=== PATIENT | female | born 1945 | race Caucasian/White ===

== ENCOUNTER → 2018-11-06 | Outpatient (REF) | payer MEDICARE | END | disposition home or self-care (01) | LOC: MRI 09:19 | PROVIDERS: ATTEND Internal Medicine | DX: R42 Dizziness and giddiness (principal) | CPT/HCPCS: A9579 ==

== ENCOUNTER 2022-01-02 16:53 | Observation (INO) | payer MEDICARE ==
[~2022-01-02] VITALS: Ht 170.2 cm; Wt 94.0 kg
[2022-01-02 17:24] VITALS: BP 190/84
[2022-01-02 17:40] LABS: HEMATOCRIT 44.5 % (37.0-47.0); HEMOGLOBIN 14.9 g/dl (12.0-16.0); IMMATURE GRANULOCYTES 0.1 % (0.0-5.0); MEAN CELL VOLUME 95.9 fL CALC (80.0-100.0); MEAN CORPUSCULAR HGB 32.1 pG CALC (26.0-32.0); MEAN CORPUSCULAR HGB CONC 33.5 g/dL CAL (32.0-36.0); NEUT# 4.12 thou/uL (2.00-7.15); RED BLOOD COUNT 4.64 mill/uL (4.20-5.60); RED CELL DISTRI WIDTH 13.5 % (11.5-15.5)
[2022-01-02 17:52] LABS: ALBUMIN 4.6 g/dL (3.2-5.0); ALKALINE PHOSPHATASE 70 u/l (38-126); ANION GAP 14 (6-22 (CALC)); BUN 18 mg/dL (8-23); BUN/CREATININE RATIO 19 (12-20 (CALC)); CARBON DIOXIDE 28 mmol/l (22-30); CHLORIDE 103 mmol/l (95-108); CREATININE 0.9 mg/dL (0.5-1.0); GFR > 60 ML/MIN (>=60 (CALC)); GFR FOR AFR.AMER. > 60 ML/MIN (>=60 (CALC)); MAGNESIUM 1.9 mg/dL (1.6-2.3); POTASSIUM 4.1 mmol/l (3.5-5.1); SGOT/AST 26 u/l (9-36); SODIUM 141 mmol/l (137-146)
[2022-01-02 19:04] VITALS: BP 140/57
--- NOTE | 2022-01-02 20:00 | NUR ---
PATIENT SITTING IN BED AT THIS TIME-AWAKE ALERT AND ORIENTEDX3. IVF NS HUNG AND INFUSING VIA LAC SITE AT 100CC/HR. SITE IS HEALTHY WITH GOOD BLOOD RETURN. MEDICATED FOR NAUSEA WITH ZOFRAN 4MG IVP AND WITH PROTONIX ORDERED. PATIENT IS NOW STARTING GASTROGRAFIN PREP ORDERED FOR CT OF ABD. PATIENT INSTRUCTED THAT WE DO NEED URINE SPEC WHEN SHE IS ABLE TO PROVIDE URINE SPEC. ORIENTED TO ROOM AND SURROUNDINGS. NPO EXCEPT FOR MEDICATIONS AT THIS TIME. SAFETY PRECAUTIONS REINFORCED. CALL LIGHT IN REACH. WILL CONT TO MONITOR.
--- NOTE | 2022-01-02 22:00 | NUR ---
PATIENT RESTING IN BED-COMPLETED THE CT ORAL CONTRAST AND RADIOLOGY WAS NOTIFIED. PATIENT WAS TAKEN TO RADIOLOGY AND THEN RETURNED TO THE ROOM BY [facility] STAFF. ASSISTED TO BR AND URINE SPEC WAS OBTAINED AND SENT TO LAB. BACK IN BED WITH IVF PATENT AND INFUSING VIA LAC SITE AT 100CC/HR. SITE REMAINS HEALTHY. PATIENT MEDICATED ORDERED WITH SIP OF H20. MEDICATED FOR PAIN WITH MORPHINE 2MG IVP ORDERED. SAFETY PRECAUTIONS REINFORCED. CALL LIGHT IN REACH. WILL CONT TO MONITOR.
[2022-01-02 23:09] LABS: URINE BILIRUBIN - DIPSTICK NEGATIVE (NEGATIVE); URINE BLOOD DIPSTICK NEGATIVE (NEGATIVE); URINE COLOR YELLOW; URINE GLUCOSE - DIPSTICK NEGATIVE (NEGATIVE); URINE KETONE TRACE mg/dL (NEGATIVE); URINE LEUK ESTERASE NEGATIVE (NEGATIVE); URINE PH 5.5 (4.5-8.0); URINE PROTEIN - DIPSTICK NEGATIVE (NEG-TRACE); URINE SPECIFIC GRAVITY >=1.030; URINE UROBILINOGEN - DIPSTICK 0.2 E.U./dL (0.2)
[2022-01-02 23:10] LABS: URINE NITRITE - DIPSTICK POSITIVE (Negative)
[2022-01-02 23:14] LABS: URINE BACTERIA MANY hpf; URINE SQUAMOUS EPITHELIAL CELL FEW EPI/hpf (0-FEW)
--- NOTE | 2022-01-03 00:30 | NUR ---
PATIENT RESTING IN BED-ROCEPHIN HUNG ORDERED VIA LAC SITE. REMAINS NPO AT THIS TIME. CALL LIGHT IN REACH. WILL CONT TO MONITOR.
[2022-01-03 04:15] VITALS: BP 109/54
--- NOTE | 2022-01-03 04:30 | NUR ---
PATIENT RESTING IN BED WITH EYES CLOSED. RESPS ARE EVEN AND UNLABORED. IVF NS PATENT AND INFUSING VIA LEFT ACSITE AT 100CC/HR. REMAINS NPO EXCEPT FOR MEDS. CALL LIGHT IN REACH. WILL CONT TO MONITOR.
[2022-01-03 06:15] LABS: ALKALINE PHOSPHATASE 53 u/l (38-126); ANION GAP 10 (6-22 (CALC)); BILIRUBIN, TOTAL 0.6 mg/dL (0.0-1.4); BUN 15 mg/dL (8-23); BUN/CREATININE RATIO 18 (12-20 (CALC)); CARBON DIOXIDE 25 mmol/l (22-30); CHLORIDE 108 mmol/l (95-108); CREATININE 0.8 mg/dL (0.5-1.0); GFR > 60 ML/MIN (>=60 (CALC)); GFR FOR AFR.AMER. > 60 ML/MIN (>=60 (CALC)); POTASSIUM 4.2 mmol/l (3.5-5.1); SGOT/AST 20 u/l (9-36); SODIUM 139 mmol/l (137-146)
[2022-01-03 06:31] LABS: ALBUMIN 3.3 g/dL (3.2-5.0); TOTAL PROTEIN 5.9 g/dL (6.3-8.2)
[2022-01-03 06:46] VITALS: BP 116/54
--- NOTE | 2022-01-03 08:00 | NUR ---
GOT REPORT FROM PADDING [facility]UER NURSE. PATIENT SLEEPING WHEN WALKING INTO ROOM. PATIENT AWOKE WITH CATALINAALY CALLING HER NAME. PATIENT ASSESSED, AOX3, DENIES ANY NAUSEA AND VOMITING ALL NIGHT. PATIENT IS NPO FOR A PROCEDURE TODAY. ALTHOUGH PATIENT ADMITTED OF SIPPING WATER EARLIER THIS MORNING AND DOES NOT KNOW THE TIME. PER [employer] RELATIONS ASSOCIATE PATIENT IS TO HOLD OFF OF MORNING MEDICATIONS UNTIL AFTER PROCEDURE. PATIENT MADE AWARE AND VERBALIZED UNDERSTANDING. CALL LIGHT AND BEDSIDE TABLE IS WITHIN REACH OF PATIENT. NO QUESTIONS OR CONCERNS AT THIS TIME FROM PATIENT. ADVISED PATIENT TO CALL IF SHE NEEDS ANYTHING.
[2022-01-03] MEDS ORDERED: FLEXERIL5 M1 PO (10:27)
[2022-01-03] MEDS ORDERED: GABAPENTIN100 MG PO (10:28)
[2022-01-03] MEDS ORDERED: ESCITALOPRAM OX20 MG PO (10:28)
[2022-01-03] MEDS ORDERED: TRAMADOL HCL50 MG PO (10:29)
[2022-01-03] MEDS ORDERED: BUSPIRONE5 MG PO (10:29)
[2022-01-03] MEDS ORDERED: DITROPAN XL5 MG PO (10:30)
[2022-01-03] MEDS ORDERED: XANAX0.25 MG PO (10:30)
[2022-01-03] MEDS ORDERED: METFORMIN500 M2 PO (10:30)
[2022-01-03] MEDS ORDERED: LEVOTHYROXIN75 MCG PO (10:31)
[2022-01-03] MEDS ORDERED: ROPINIROLE2 MG PO (10:31)
[2022-01-03] MEDS ORDERED: ZOCOR20 M1 PO (10:32)
--- NOTE | 2022-01-03 12:00 | NUR ---
PATIENT IS SLEEPING IN BED. PATIENT BREATHING EVEN. NO SXS OF DISTRESS.CALL LIGHT AND BEDSIDE TABLE WITHIN REACH OF PATIENT.
[2022-01-03 14:14] VITALS: BP 110/49
--- NOTE | 2022-01-03 16:00 | NUR ---
PATIENT IN RECLINER NAPPING. PATIENT HAS NO SXS OF DISTRESS. BREATHING IS EVEN. CALL LIGHT AND BEDSIDE TABLE ARE WITH IN REACH OF PATIENT.
[2022-01-03 18:50] VITALS: BP 140/63
--- NOTE | 2022-01-03 20:00 | NUR ---
PATIENT RESTING IN BED AT THIS TIME-AWAKE ALERT AND ORIENTEDEX3 WITH NO COMPLAINTS AT THIS TIME EXCEPT THAT SHE HAD SOME LOOSE STOOLS THIS AFTERNOON. NO NAUSEA OR ABD PAIN AT THIS TIME. IVF NS PATENT AND INFUSING VIA LAC SITE AT 100CC/HR. SITE REMAINS HEALTHY AT THIS TIME. PATIENT FOR EGD TOMORROW WITH DR. FORRESTER. NPO AFTER MN TONIGHT-PATIENT IS AWARE. ABD IS SOFT WITH ACTIVE BS. SAFETY PRECAUTIONS REINFORCED. CALL LIGHT IN REACH. WILL CONT TO MONITOR.
--- NOTE | 2022-01-03 23:44 | NUR ---
PATIENT RESTING IN BED POSITIONED ON LEFT SIDE WITH EYES CLOSED. RESPS ARE EVEN AND UNLABORED. IVF PATENT AND INFUSING VIA LEFT AC SITE. ROCEPHIN HUNG ORDERED. NPO FOR EGD IN AM. CALL LIGHT IN REACH. WILL CONT TO MONITOR.
[2022-01-04] VITALS (10 sets, daily range): BP systolic 109–125; BP diastolic 56–65
--- NOTE | 2022-01-04 04:25 | NUR ---
PATIENT RESTING ON LEFT SIDE WITH EYES CLOSED. RESP ARE EVEN AND UNLABORED. IVF PATENT AND INFUSING VIA LAC SITE AT 100CC/HR. CALL LIGHT IN REACH. WILL CONT TO MONITOR.
[2022-01-04 05:51] LABS: HEMATOCRIT 40.3 % (37.0-47.0); HEMOGLOBIN 13.1 g/dl (12.0-16.0); IMMATURE GRANULOCYTES 0.4 % (0.0-5.0); MEAN CELL VOLUME 97.8 fL CALC (80.0-100.0); MEAN CORPUSCULAR HGB 31.8 pG CALC (26.0-32.0); MEAN CORPUSCULAR HGB CONC 32.5 g/dL CAL (32.0-36.0); NEUT# 3.38 thou/uL (2.00-7.15); RED BLOOD COUNT 4.12 mill/uL (4.20-5.60); RED CELL DISTRI WIDTH 13.3 % (11.5-15.5)
[2022-01-04 06:19] LABS: ALBUMIN 3.3 g/dL (3.2-5.0); ALKALINE PHOSPHATASE 48 u/l (38-126); ANION GAP 11 (6-22 (CALC)); BILIRUBIN, TOTAL 0.4 mg/dL (0.0-1.4); BUN 14 mg/dL (8-23); BUN/CREATININE RATIO 18 (12-20 (CALC)); CARBON DIOXIDE 22 mmol/l (22-30); CHLORIDE 109 mmol/l (95-108); CREATININE 0.8 mg/dL (0.5-1.0); GFR > 60 ML/MIN (>=60 (CALC)); GFR FOR AFR.AMER. > 60 ML/MIN (>=60 (CALC)); MAGNESIUM 1.8 mg/dL (1.6-2.3); POTASSIUM 4.3 mmol/l (3.5-5.1); SGOT/AST 22 u/l (9-36); SODIUM 138 mmol/l (137-146); TOTAL PROTEIN 5.7 g/dL (6.3-8.2)
--- NOTE | 2022-01-04 07:47 | NUR ---
PT IN OR FOR PROCEDURE
--- NOTE | 2022-01-04 09:07 | NUR ---
PT ARRIVED FROM OR VIA STRATCHER WITH ASSISTANT GOLF COACH.
[2022-01-04] MEDS ORDERED: BACTRIM DS1 TAB PO (11:25)
--- NOTE | 2022-01-04 14:54 | NUR ---
Discharge instructions given. Patient verbalizes understanding of same. Discharged in stable condition via Wheelchair to Home with staff. All belongings sent with pt.
== END 2022-01-04 14:54 | disposition home or self-care (01) ==
LOC: MS2 16:53
PROVIDERS: Nurse Practitioner; ADMIT Internal Medicine; ATTEND Internal Medicine
PROC: 0DJ08ZZ Inspection of Upper Intestinal Tract, Via Natural or Artificial Opening Endoscopic (ICD-10-PCS; principal; 2022-01-04)
DX: R13.10 Dysphagia, unspecified (principal); R11.2 Nausea with vomiting, unspecified; N39.0 Urinary tract infection, site not specified; I10 Essential (primary) hypertension; E11.9 Type 2 diabetes mellitus without complications; E03.9 Hypothyroidism, unspecified; F32.A Depression, unspecified; F41.9 Anxiety disorder, unspecified; G25.81 Restless legs syndrome; Z98.84 Bariatric surgery status; Z87.891 Personal history of nicotine dependence; Z20.822 Contact with and (suspected) exposure to COVID-19
CPT/HCPCS: J1650; S0164

== ENCOUNTER 2024-05-24 13:31 | Observation (INO) | payer MEDICARE ==
[~2024-05-24] VITALS: Ht 170.2 cm; Wt 91.2 kg
[2024-05-24] VITALS (15 sets, daily range): BP systolic 98–150; BP diastolic 64–85
[~2024-05-24 13:31] MED LIST: BACTRIM DS1 TAB PO; BUSPIRONE5 MG PO; DITROPAN XL5 MG PO; ESCITALOPRAM OX20 MG PO; FLEXERIL5 M1 PO; GABAPENTIN100 MG PO; LEVOTHYROXIN75 MCG PO; METFORMIN500 M2 PO; ROPINIROLE2 MG PO; TRAMADOL HCL50 MG PO; XANAX0.25 MG PO; ZOCOR20 M1 PO
[2024-05-24 14:18] LABS: BASO% 0.7 % (0-3); HEMATOCRIT 41.9 % (37.0-47.0); HEMOGLOBIN 13.7 g/dl (12.0-16.0); IMMATURE GRANULOCYTES 0.2 % (0.0-5.0); MEAN CELL VOLUME 102.7 fL CALC (80.0-100.0); MEAN CORPUSCULAR HGB 33.6 pG CALC (26.0-32.0); MEAN CORPUSCULAR HGB CONC 32.7 g/dL CAL (32.0-36.0); MONO% 4.5 % (2-13); NEUT# 2.97 thou/uL (2.00-7.15); NEUT% 55.6 % (42-76); RED BLOOD COUNT 4.08 mill/uL (4.20-5.60); RED CELL DISTRI WIDTH 14.3 % (11.5-15.5)
[2024-05-24 14:34] LABS: ALBUMIN 4.7 g/dL (3.2-5.0); BILIRUBIN, TOTAL 0.8 mg/dL (0.02-1.3); CREATININE 0.9 mg/dL (0.5-1.0); TOTAL PROTEIN 7.4 g/dL (6.3-8.2)
[2024-05-24] MEDS ORDERED: MAGNESIUM HYDROXIDE 30 ML UDC PO PRN (15:35)
[2024-05-24] MEDS ORDERED: SODIUM CHLORIDE 0.9% 1,000 ML IV PRN (15:35)
[2024-05-24] MEDS ORDERED: hydrALAZINE HCL 20 MG/ML VIAL(1 ML) IV PRN (15:45)
[2024-05-24] MEDS ORDERED: MECLIZINE HCL 25 MG/TAB PO PRN (15:45)
[2024-05-24] MEDS ORDERED: INSULIN LISPRO 100 UNITS/ML ML SC SCH (17:00)
[2024-05-24] MEDS ORDERED: rOPINIRole Hydrochloride 0.5 MG/TAB PO SCH (21:00)
[2024-05-24] MEDS ORDERED: ENOXAPARIN SODIUM 40 MG/0.4 ML SYR SC SCH (21:00)
[2024-05-24] MEDS ORDERED: SIMVASTATIN 5 MG TAB PO SCH (21:00)
[2024-05-24] MEDS ORDERED: busPIRone HCL 5 MG/TAB PO SCH (21:00)
[2024-05-25 00:10] VITALS: BP 107/66
[2024-05-25 04:51] VITALS: BP 125/64
[2024-05-25 04:56] VITALS: BP 125/64
[2024-05-25 04:57] LABS: BASO% 0.8 % (0-3); EOS% 3.2 % (0-8); HEMATOCRIT 38.1 % (37.0-47.0); HEMOGLOBIN 12.4 g/dl (12.0-16.0); IMMATURE GRANULOCYTES 0.2 % (0.0-5.0); LYMPH% 49.9 % (15-41); MEAN CELL VOLUME 103.5 fL CALC (80.0-100.0); MEAN CORPUSCULAR HGB 33.7 pG CALC (26.0-32.0); MEAN CORPUSCULAR HGB CONC 32.5 g/dL CAL (32.0-36.0); MONO% 5.3 % (2-13); NEUT# 2.14 thou/uL (2.00-7.15); NEUT% 40.6 % (42-76); RED BLOOD COUNT 3.68 mill/uL (4.20-5.60); RED CELL DISTRI WIDTH 14.3 % (11.5-15.5)
[2024-05-25 05:04] LABS: ALBUMIN 3.9 g/dL (3.2-5.0); ALKALINE PHOSPHATASE 35 u/l (38-126); ANION GAP 6 (6-22 (CALC)); BILIRUBIN, TOTAL 0.7 mg/dL (0.02-1.3); BUN 22 mg/dL (8-23); BUN/CREATININE RATIO 27 (12-20 (CALC)); CALCULATED LDLCHOLESTEROL 88 mg/dL (62-129 (CALC)); CARBON DIOXIDE 27 mmol/l (22-30); CHLORIDE 110 mmol/l (95-108); CHOLESTEROL HDL RATIO 2.3 (<4.4 (CALC)); CREATININE 0.8 mg/dL (0.5-1.0); ESTIMATED GFR 76 ML/MIN (>=90 (CALC)); HDL CHOLESTEROL 79 mg/dL (39.0-59.0); MAGNESIUM 1.6 mg/dL (1.6-2.3); POTASSIUM 3.3 mmol/l (3.5-5.1); SGOT/AST 35 u/l (9-36); SODIUM 139 mmol/l (137-146); TOTAL CHOLESTEROL 185 mg/dl (0-199); TOTAL PROTEIN 6.2 g/dL (6.3-8.2); TOTAL TRIGLYCERIDES 88 mg/dl (0-149); VLDL CHOLESTROL 18 mg/dl (0-48 (CALC))
[2024-05-25] MEDS ORDERED: LEVOTHYROXINE SODIUM 50 MCG/TAB PO SCH (06:00)
[2024-05-25 07:50] VITALS: BP 123/70
[2024-05-25] MEDS ORDERED: ESCITALOPRAM 10 MG/TAB PO SCH (09:00)
[2024-05-25 11:52] VITALS: BP 112/65
[2024-05-25] MEDS ORDERED: MECLIZINE25 MG PO (12:55)
== END 2024-05-25 15:30 | disposition home or self-care (01) ==
LOC: ED 13:31 → ED-I 15:04 → ED 15:29 → MS2 15:30
PROVIDERS: Family Medicine; ADMIT Student in an Organized Health Care Education/Training Program; ATTEND Student in an Organized Health Care Education/Training Program
DX: R42 Dizziness and giddiness (principal); H53.2 Diplopia; E11.9 Type 2 diabetes mellitus without complications; E03.9 Hypothyroidism, unspecified; F41.9 Anxiety disorder, unspecified; F32.A Depression, unspecified; Z98.84 Bariatric surgery status; Z79.84 Long term (current) use of oral hypoglycemic drugs; Z87.891 Personal history of nicotine dependence
CPT/HCPCS: J1650